=== PATIENT | female | born 1985 | race Caucasian/White ===

== ENCOUNTER 2021-04-19 05:30 | Day surgery (SDC) | payer BC, SELFPAY ==
[~2021-04-19] VITALS: Ht 160 cm; Wt 90.7 kg
[2021-04-19 06:26] LABS: HCG,QUAL RESULT NEGATIVE (NEGATIVE)
[2021-04-19] MEDS ORDERED: HYDROmorphone 1 MG/ML INJ. CARTRIDGE IVP PRN ×2 (08:15)
[2021-04-19] MEDS ORDERED: ONDANSETRON HCL 4 MG/2 ML VIAL IVP PRN (08:15)
[2021-04-19 09:28] VITALS: BP_SYST 126
== END 2021-04-19 10:40 | disposition home or self-care (01) ==
LOC: SDS 05:30 → SMU 05:30 → SDS 10:40
PROVIDERS: ATTEND Obstetrics & Gynecology
DX: D06.9 Carcinoma in situ of cervix, unspecified (principal); Z79.899 Other long term (current) drug therapy; Z20.822 Contact with and (suspected) exposure to COVID-19
CPT/HCPCS: 36415; 84703; 86886; 86900; 86901; 88305; 88307